=== PATIENT | female | born 1960 | race Caucasian/White ===

== ENCOUNTER 2021-05-24 11:38 | Day surgery (SDC) | payer OTHER ==
[2021-05-24] MEDS ORDERED: Depo-Medrol 40 MG/ML IM ONE (11:39)
[2021-05-24] MEDS ORDERED: BUPIVACAINE 0.5% VIAL IJ ONE (11:39)
[2021-05-24] MEDS ORDERED: Xylocaine 1% Vial 30 ML PF IJ ONE (11:39)
--- NOTE | 2021-05-24 14:22 | XRAY ---
24 seconds fluoroscopy time in surgery for intra-articular and subachromial injections of the left shoulder.
--- NOTE | 2021-05-24 22:05 | XRAY ---
Indication: Left shoulder and subacromial injections. Intraoperative fluoroscopy provided for 24 seconds. 3 digital spot image submitted for interpretation demonstrates needle tip projecting over the left glenohumeral joint superiorly. Second needle tip is subacromial. Small amount of contrast injected for both needle tip placement. Correlate with intraoperative findings/report.
== END 2021-05-24 13:55 | disposition home or self-care (01) ==
LOC: SDC-PAIN 11:38
PROVIDERS: ATTEND Psychiatry & Neurology Pain Medicine
DX: M19.012 Primary osteoarthritis, left shoulder (principal); M75.52 Bursitis of left shoulder; E11.9 Type 2 diabetes mellitus without complications; F41.9 Anxiety disorder, unspecified; F32.9 Major depressive disorder, single episode, unspecified; I49.9 Cardiac arrhythmia, unspecified; Z79.899 Other long term (current) drug therapy
CPT/HCPCS: 20610; 73030; 77002; 82947; J1030; J2001; Q9966

== ENCOUNTER 2022-01-10 07:36 | Day surgery (SDC) | payer OTHER ==
[2022-01-10] MEDS ORDERED: Depo-Medrol 40 MG/ML IM ONE (07:37)
[2022-01-10] MEDS ORDERED: Sodium Chloride 0.9(Preservative Free) 10 ML IJ ONE (07:37)
[2022-01-10] MEDS ORDERED: DIPRIVAN 200 MG/20 ML IV ONE (09:07)
[2022-01-10] MEDS ORDERED: Lactated Ringers 1,000 ML IV ONE (09:14)
--- NOTE | 2022-01-10 10:50 | XRAY ---
Indication: Caudal CHRISTEN. Intraoperative fluoroscopy provided for 20 seconds. 2 digital spot image submitted for interpretation demonstrates posterior caudal needle tip projecting over the mid sacrum. Small amount of contrast injected for needle tip placement. Correlate with intraoperative findings/report.
--- NOTE | 2022-01-10 11:03 | XRAY ---
20 seconds fluoroscopy time in surgery for caudal CHRISTEN.
== END 2022-01-10 09:28 | disposition home or self-care (01) ==
LOC: SDC-PAIN 07:36
PROVIDERS: ATTEND Psychiatry & Neurology Pain Medicine
DX: M54.16 Radiculopathy, lumbar region (principal); E11.9 Type 2 diabetes mellitus without complications; Z79.899 Other long term (current) drug therapy
CPT/HCPCS: 62323; 72220; 77003; 82947; J1030; J2704; Q9966

== ENCOUNTER 2022-06-27 08:43 | Day surgery (SDC) | payer OTHER ==
[2022-06-27] MEDS ORDERED: Depo-Medrol 40 MG/ML IM ONE (08:44)
[2022-06-27] MEDS ORDERED: Sodium Chloride 0.9(Preservative Free) 10 ML IJ ONE (08:44)
[2022-06-27] MEDS ORDERED: Versed 2 MG/2 ML Injection ONE (09:24)
[2022-06-27] MEDS ORDERED: DIPRIVAN 200 MG/20 ML IV ONE (10:16)
[2022-06-27] MEDS ORDERED: MORPHINE SULFATE 2 MG INJ ONE (10:31)
--- NOTE | 2022-06-27 12:14 | XRAY ---
Indication: Left L4-S1 transforaminal CHRISTEN. Intraoperative fluoroscopy provided for 49 seconds. 4 digital spot images submitted for interpretation demonstrates posterior needle tips projecting over the expected left L4 and L5 nerve roots. Small amount of contrast injected for needle tip placement. Correlate with intraoperative findings/report. Incidental incompletely visualized bilateral posterior lumbar fusion hardware.
--- NOTE | 2022-06-27 12:22 | XRAY ---
49 seconds fluoroscopy time in surgery for left L4-S1 transforaminal CHRISTEN.
[2022-06-27] MEDS ORDERED: Lactated Ringers 1,000 ML IV ONE (15:28)
== END 2022-06-27 10:50 | disposition home or self-care (01) ==
LOC: SDC-PAIN 08:43
PROVIDERS: ATTEND Psychiatry & Neurology Pain Medicine
DX: M54.16 Radiculopathy, lumbar region (principal); E11.9 Type 2 diabetes mellitus without complications; Z79.899 Other long term (current) drug therapy
CPT/HCPCS: 64483; 64484; 72100; 77003; 82947; J1030; J2250; J2270; J2704; Q9966